=== PATIENT | female | born 1980 | race Caucasian/White ===

== ENCOUNTER 2016-06-01 23:41 | Emergency (ER) | payer OTHER ==
--- NOTE | 2016-06-02 18:20 | ER ---
ADMIT: 06/01/2016 RM/LOC: ER [facility] MR#: [id number] [facility] [id number] GUERLINE CONTRERAS [address] [place], [place] [id number] Emergency Room Report SEX: F AGE: 36 : 1980 DATE: 06/02/2016 The patient is a 36-year-old female with known anxiety, depression, recent suicide attempt with Seroquel. Admits to increasing stress due to work and medication change this past week. Transferred by [facility] after experiencing panic attack and altered level of consciousness. Exam remarkable for nontoxic, afebrile female, hyperventilating at times resorting to a semiconscious state but easily aroused with tactile stimulation. CT head negative. Normal CBC and CMP. Negative alcohol, tox screen, acetaminophen, and salicylate. Normal TSH, free T4. EKG sinus rhythm without ST-T or Q-wave change. Advised coping mechanisms. Follow up Dr. Martin and mental therapist. Tirso Pike MD/ johnl JOB #: [id number] CC: Tirso Pike MD, Attending Physician Lazarus Martin MD, Family Physician Lazarus Martin MD
--- NOTE | 2016-06-05 11:06 | NUR ---
Received SAD person referral. Called and spoke with pt. Pt states she is doing good. Deny any needs or concerns at this time.
== END 2016-06-02 01:35 | disposition home or self-care (01) ==
LOC: ER 23:41
DX: F41.0 Panic disorder [episodic paroxysmal anxiety] (principal); F41.9 Anxiety disorder, unspecified; Z88.8 Allergy status to other drugs, medicaments and biological substances; Z98.890 Other specified postprocedural states; Z79.899 Other long term (current) drug therapy